=== PATIENT | female | born 1940 | race Caucasian/White ===

== ENCOUNTER 2017-09-24 08:10 | Outpatient (CLI) | payer MEDICARE ==
--- NOTE | 2017-09-24 09:49 | CT ---
CT CHEST WITHOUT CONTRAST: Date: 09/24/17 Multiple axial tomograms obtained through the chest without IV enhancement. HISTORY: Right renal malignancy and bladder cancer. Follow-up pulmonary nodules. COMPARISON: Chest CT of 03/12/17. Prior exam revealed bilateral nodules. FINDINGS: There is a focal nodule in the right upper lobe, apical region, again seen. This nodule has enlarged since the prior study. This nodule is best appreciated on coronal imaging and measures 7.0 mm on olimpia nal views. Previous measurements on coronal images were approximately 4-5 mm. A tiny nodule superior segment right lower lobe faintly seen on the axial images, better seen on the coronal imaging, measuring in the 4.0 mm range is stable. In the lingula, there is an area of scarring with a nodular component, which was described previously . This is less prominent today. The nodular component measures approximately 9.0 mm today, whereas it previously measured approximately 12.0 mm. This is associated with lingular stranding and there is a tiny pleural based nodule at this site measuring approximately 3.0 mm. A tiny, 2-3 mm, nodule slightly more anterior in the lingula is stable. Mediastinum unremarkable. Images through upper abdomen unremarkable. Visualized liver and spleen unremarkable. IMPRESSION: 1. The right apical nodule has enlarged since the prior exam. This is suspicious. Close follow-up is recommended. The size of this nodule is borderline for PET scan evaluation. Suggest follow-up noncon trast CT in 3-4 months to re-evaluate. 2. Other pulmonary nodules appear stable. The 1.0 cm nodule in the left lingula is less pronounced t dejah and is associated with other areas of parenchymal stranding and density that appears consistent with parenchymal scarring. POS: SUYAPA
== END 2017-09-24 08:11 | disposition home or self-care (01) ==
LOC: CT 08:10
PROVIDERS: ATTEND Urology
DX: C65.1 Malignant neoplasm of right renal pelvis (principal); C67.4 Malignant neoplasm of posterior wall of bladder; R91.8 Other nonspecific abnormal finding of lung field
CPT/HCPCS: 71250; 88121

== ENCOUNTER 2017-12-25 09:12 | Outpatient (CLI) | payer MEDICARE ==
[2017-12-25 10:08] LABS: Bilirubin Negative (Negative); Blood, Urine Trace (Negative); Clarity CLEAR (Clear); Glucose, Urine (Dipstick) Negative (Negative); Leukocyte Negative (Negative); Nitrite Negative (Negative); Protein, Urine (Dipstick) Negative (Neg-Trace); Specific Gravity, Urine 1.024 (1.002-1.036); Urobilinogen 0.2 mg/dL (0.2-1.0); pH, Urine 5.5 (5.0-9.0)
[2017-12-25 10:10] LABS: Albumin 4.1 g/dL (3.4-4.8)
[2017-12-25 10:11] LABS: Chloride 106 mmol/L (98-107); Potassium 4.3 mmol/L (3.5-5.1); Sodium 141 mmol/L (136-145)
[2017-12-25 10:12] LABS: Calcium 9.1 mg/dL (7.8-10.44); Glucose 92 mg/dL (83-110)
[2017-12-25 10:13] LABS: Globulin 2.9 g/dL (2.4-3.5)
[2017-12-25 10:14] LABS: Bilirubin, Total 0.6 mg/dL (0.2-1.2); Carbon Dioxide 28 mmol/L (23-31)
[2017-12-25 10:15] LABS: Alkaline Phosphatase 87 U/L (40-150); Bacteria/HPF None Seen HPF (None Seen); Hyaline Casts/LPF 0-3 HYALINE CAST LPF (0-3 Hyaline); Pathc Cast-AUWi Flag 0.43 (0-2.49); RBC/HPF 0-3 HPF (0-3); Squamous Epithelial 0-3 HPF (0-3); WBC/HPF 0-3 HPF (0-3)
[2017-12-25 10:16] LABS: Calc. Creatinine Clearance 0 mL/min (70-130); Estimated GFR-MDRD 50
[2017-12-25 10:17] LABS: AST (SGOT) 18 U/L (5-34); BUN (Urea Nitrogen) 20 mg/dL (9.8-20.1)
[2017-12-25 10:18] LABS: ALT (SGPT) 16 U/L (8-55)
[2017-12-25 10:28] LABS: Anion Gap 11 mmol/L (10-20)
--- NOTE | 2017-12-25 10:50 | CT ---
CT CHEST WITHOUT CONTRAST: HISTORY: Followup pulmonary nodules. Right renal malignancy and bladder cancer. COMPARISON: 09/24/17. FINDINGS: Bilateral tiny pulmonary nodules are again seen and stable. The largest on the right is in the right lung apex measuring 7 mm and in the left is in the lingula measuring 9 mm. The lingular nodule has adjacent scarring. No new pulmonary nodules are identified. Absence of IV contrast reduces the sensitivity of the exam, particularly for evaluation of mediastin al, hilar, vascular structures, and solid organs on the upper abdominal tomograms. There are vascular calcifications without evidence of aneurysmal dilatation of the thoracic aorta. N o pleural or pericardial effusions are seen. Upper abdominal tomograms demonstrate multiple new liver masses. The patient is post cholecystectomy . There are degenerative changes in the spine. IMPRESSION: 1. Stable pulmonary nodules since 09/24/17. Continued followup in 3-4 months is recommended. 2. Interval development of hepatic metastases since 09/24/17. POS: SUYAPA
== END 2017-12-25 09:13 | disposition home or self-care (01) ==
LOC: CT 09:12
PROVIDERS: ATTEND Urology
DX: C78.7 Secondary malignant neoplasm of liver and intrahepatic bile duct (principal); R91.1 Solitary pulmonary nodule; C65.1 Malignant neoplasm of right renal pelvis; C67.4 Malignant neoplasm of posterior wall of bladder
CPT/HCPCS: 36415; 71250; 80053; 81001; 87086

== ENCOUNTER 2017-12-29 11:23 | Outpatient (CLI) | payer MEDICARE ==
[~2017-12-29 11:23] MED LIST: Iopamidol 370 76% 100 ML VIAL ONE
--- NOTE | 2017-12-29 13:49 | CT ---
CT ABDOMEN AND PELVIS WITH AND WITHOUT CONTRAST: Date: 12/29/17 HISTORY: C65.1, neoplasm right renal pelvis. COMPARISON: None. FINDINGS: There are numerous hypodense foci throughout the liver seen on the noncontrasted portion of the exami nation. There is, however, no abnormal hyper or hypoenhancement of the foci on the postcontrast 90 se cond delayed or 4 minute delayed images. This may be sequelae of metastatic disease which has the exact same enhancement pattern as the liver parenchyma, less likely artifact on the noncontrast exam. Prior right nephrectomy. Left renal cyst is present. No dilated loops of large or small bowel. No abnormal nodularity along the right nephrectomy bed. There are, however, abnormal confluent area of adenopathy along the right distal small bowel mesenter y. This best seen on series 3, image 61. Right periaortic lymph nodes have increased in size from the comparison examination. There is an abno rmal round lymph node which measures 12.0 mm in short axis, previously 4.0 mm in short axis. There is a focal area of hyperenhancement along the right posterolateral wall near the right ureterov esical junction measuring 2.0 x 2.0 x 2.1 cm. Moderate facet arthropathy lower lumbar spine. No suspicious lytic or blastic lesions. IMPRESSION: 1. Numerous hypodense foci throughout the liver, only seen on the noncontrasted portion of the exami nation, and not seen on the 90 second or 4 minute delayed sequences. Metastasis from renal cell carci noma would be less likely to cause this imaging appearance. Multifocal nodular fatty infiltration of the liver is a possibility versus metastatic disease from another primary. MRI liver protocol would b e helpful. 2. Abnormal adenopathy along the distal small bowel mesentery, right gonadal vessels, as well as a m ass in the right posterolateral urinary bladder wall measuring up to 2.0 cm. Cystoscopic evaluation r ecommended. CODE T. POS: SUYAPA
== END 2017-12-29 11:24 | disposition home or self-care (01) ==
LOC: CT 11:23
PROVIDERS: ATTEND Urology
DX: C65.1 Malignant neoplasm of right renal pelvis (principal); C67.4 Malignant neoplasm of posterior wall of bladder; R16.0 Hepatomegaly, not elsewhere classified; R93.3 Abnormal findings on diagnostic imaging of other parts of digestive tract
CPT/HCPCS: 74178

== ENCOUNTER 2018-01-04 09:20 | Outpatient (CLI) | payer MEDICARE ==
[2018-01-04] MEDS ORDERED: Gadobenate Dimeglumine 529 MG/1 ML (20ML VIAL) ONE (09:55)
== END 2018-01-04 09:21 | disposition home or self-care (01) ==
LOC: BICMRI 09:20
PROVIDERS: ATTEND Urology
DX: C65.1 Malignant neoplasm of right renal pelvis (principal); C67.4 Malignant neoplasm of posterior wall of bladder; R91.1 Solitary pulmonary nodule; R16.0 Hepatomegaly, not elsewhere classified; K76.9 Liver disease, unspecified; N28.1 Cyst of kidney, acquired; Z90.5 Acquired absence of kidney
CPT/HCPCS: 74183; 82565; A9579

== ENCOUNTER 2018-02-17 13:18 | Outpatient (CLI) | payer MEDICARE ==
[2018-02-17 14:19] LABS: Hemoglobin 13.2 g/dL (12.0-16.0); Mean Corpuscular HGB CONC 32.5 g/dL (32.0-36.0); Mean Corpuscular Hemoglobin 29.4 pg (27.0-31.0); Mean Corpuscular Volume 90.4 fL (78.0-98.0); Mean Platelet Volume 8.6 fL (7.4-10.4); Platelet Count 165 thou/uL (130-400); RBC Distribution Width 12.1 % (11.5-14.5); White Blood Cell (WBC) Count 6.9 thou/uL (4.8-10.8)
[2018-02-17 14:21] LABS: Bilirubin Negative (Negative); Blood, Urine Moderate (Negative); Clarity CLEAR (Clear); Glucose, Urine (Dipstick) Negative (Negative); Leukocyte Negative (Negative); Nitrite Negative (Negative); Protein, Urine (Dipstick) Negative (Neg-Trace); Specific Gravity, Urine 1.007 (1.002-1.036); Urobilinogen 0.2 mg/dL (0.2-1.0); pH, Urine 6.5 (5.0-9.0)
[2018-02-17 14:24] LABS: Bacteria/HPF None Seen HPF (None Seen); Hyaline Casts/LPF 0-3 HYALINE CAST LPF (0-3 Hyaline); Squamous Epithelial None Seen HPF (0-3); WBC/HPF None Seen HPF (0-3)
[2018-02-17 14:25] LABS: INR-International Normal Ratio 1.2; PTT 37.2 SEC (22.9-36.1)
[2018-02-17 14:36] LABS: Anion Gap 15 mmol/L (10-20); BUN (Urea Nitrogen) 21 mg/dL (9.8-20.1); Calc. Creatinine Clearance 0 mL/min (70-130); Calcium 9.2 mg/dL (7.8-10.44); Carbon Dioxide 22 mmol/L (23-31); Chloride 106 mmol/L (98-107); Estimated GFR-MDRD 59; Glucose 90 mg/dL (83-110); Potassium 4.4 mmol/L (3.5-5.1); Sodium 139 mmol/L (136-145)
== END 2018-02-17 13:19 | disposition home or self-care (01) ==
LOC: LABBT 13:18
PROVIDERS: ATTEND Urology
DX: Z01.818 Encounter for other preprocedural examination (principal); C65.1 Malignant neoplasm of right renal pelvis; C67.4 Malignant neoplasm of posterior wall of bladder
CPT/HCPCS: 81001; 85027; 85610; 85730; 86850; 86900; 86901; 87086

== ENCOUNTER 2018-02-17 14:11 | Outpatient (CLI) | payer MEDICARE ==
--- NOTE | 2018-02-17 16:00 | CT ---
CT ABDOMEN AND PELVIS WITH AND WITHOUT CONTRAST: HISTORY: Malignant neoplasm of right renal pelvis. COMPARISON: MRI from 01/04/2018. FINDINGS: The multifocal hepatic masses have increased in size from the comparison examination. An index lesio n in hepatic segment 5 measures approximately 5 cm in size, previously 3.2 cm. This was best seen on series 2, image 26. Another index lesion in the liver, mass, also hepatic segment 5, measures 4.5 c m in size, previously 3 cm. There is extensive left periaortic/right periaortic adenopathy. Large retroperitoneal lymph nodes ar e present. There is also extensive adenopathy of the distal small bowel mesentery. The right jackaroo olateral mass has increased in size, measuring up to 3.5 cm in size, previously approximately 2 cm. There is extension outside the bladder serosa, into the right vaginal cuff. There is also a small am ount of free fluid in the pelvis, concerning for peritoneal involvement. There is a large collection of distal small bowel mesenteric lymph nodes, measuring 3.8 x 3.1 x 15 cm . IMPRESSION: 1. Marked disease progression. 2. Enlarging hepatic metastatic disease, adenopathy, and enlarging bladder mass, which extends outsi de the serosa. CODE T POS: SUYAPA
== END 2018-02-17 14:12 | disposition home or self-care (01) ==
LOC: CT 14:11
PROVIDERS: ATTEND Urology
DX: C65.1 Malignant neoplasm of right renal pelvis (principal); C67.4 Malignant neoplasm of posterior wall of bladder; C77.9 Secondary and unspecified malignant neoplasm of lymph node, unspecified
CPT/HCPCS: 36415; 74178; 80053; 81001; 82248; 83615; 84100; 84443; 84550; 85027; 85610; 85730; 86850; 86900; 86901; 87086; 93005; 93010

== ENCOUNTER 2018-03-12 08:11 | Emergency (ER) | payer MEDICARE ==
[2018-03-12 08:49] LABS: #Eosinphils 0.1 thou/uL (0.0-0.7); #Lymphocytes 1.5 thou/uL (1.20-3.40); #Monocytes 1.6 thou/uL (0.11-0.59); #Neutrophils 15.9 thou/uL (1.40-6.50); %Basophils 0.1 % (0.0-1.0); %Eosinophils 0.3 % (0.0-10.0); %Lymphocytes 7.9 % (21.0-51.0); %Monocytes 8.4 % (0.0-10.0); %Neutrophils 83.3 % (42.0-75.0); Hemoglobin 14.1 g/dL (12.0-16.0); Mean Corpuscular HGB CONC 32.3 g/dL (32.0-36.0); Mean Corpuscular Hemoglobin 29.5 pg (27.0-31.0); Mean Corpuscular Volume 91.5 fL (78.0-98.0); Mean Platelet Volume 11.4 fL (7.4-10.4); Platelet Count 163 thou/uL (130-400); RBC Distribution Width 14.1 % (11.5-14.5); Red Blood Cell (RBC) Count 4.77 mill/uL (4.20-5.40); White Blood Cell (WBC) Count 19.1 thou/uL (4.8-10.8)
[2018-03-12] MEDS ORDERED: Lorazepam 2 MG/ML VIAL ONE (09:07)
--- NOTE | 2018-03-12 09:11 | RAD ---
CHEST 1 VIEW: Date: 03/12/18 HISTORY: Weakness, nausea. COMPARISON: Chest radiograph from 2015. FINDINGS: Layering right pleural effusion. There is prominence of the right hilum. Right infrahilar air space o pacity. No pneumothorax. IMPRESSION: Right infrahilar air space opacity and layering effusion. Given the change from the 12/25/17 T examin ation, this is concerning for infection with parapneumonic effusion. Follow-up and treatment recommen ded. POS: SUYAPA
[2018-03-12 09:12] LABS: Bilirubin Moderate (Negative); Blood, Urine Large (Negative); Glucose, Urine (Dipstick) Negative (Negative); Leukocyte Negative (Negative); Nitrite Positive (Negative); Protein, Urine (Dipstick) 30 mg/dL (Neg-Trace); pH, Urine 5.5 (5.0-9.0)
[2018-03-12 09:15] LABS: Clarity Cloudy (Clear); Specific Gravity, Urine 1.029 (1.002-1.036)
[2018-03-12 09:24] LABS: RBC/HPF GREATER THAN 50-TNTC HPF (0-3)
[2018-03-12 09:25] LABS: Bacteria/HPF 3+ HPF (None Seen); Renal Epithelial 0-3 HPF (0-3); Transitional Epithelial 0-3 HPF (0-3)
[2018-03-12 09:26] LABS: ALT (SGPT) 111 U/L (8-55); AST (SGOT) 150 U/L (5-34); Albumin 3.4 g/dL (3.4-4.8); Alkaline Phosphatase 452 U/L (40-150); Anion Gap 28 mmol/L (10-20); BUN (Urea Nitrogen) 56 mg/dL (9.8-20.1); Bilirubin, Total 3.3 mg/dL (0.2-1.2); Calc. Creatinine Clearance 0 mL/min (70-130); Calcium 9.1 mg/dL (7.8-10.44); Chloride 108 mmol/L (98-107); Estimated GFR-MDRD 29; Globulin 3.5 g/dL (2.4-3.5); Glucose 123 mg/dL (83-110); Potassium 4.8 mmol/L (3.5-5.1); Protein, Total 6.9 g/dL (6.0-8.3); Sodium 140 mmol/L (136-145)
[2018-03-12] MEDS ORDERED: EPINEPHrine 1 MG/10 ML Abboject SYRINGE ONE ×2 (09:38→19:53)
[2018-03-12 09:49] LABS: Carbon Dioxide 9 mmol/L (23-31)
[2018-03-12] MEDS ORDERED: Norepinephrine 8 MG/0.9% NS 250 ML ONE (09:57)
[2018-03-12] MEDS ORDERED: Levofloxacin 500 mg/D5W 100 ml Premix Bag ONE (09:57)
[2018-03-12] MEDS ORDERED: Sodium Bicarb 50 MEQ/50 ML Abboject 8.4% SYRINGE ONE (10:39)
[2018-03-12 10:46] LABS: Actual Bicarbonate (HCO3a) 5.2 mEq/L (22-28); Analyzer IN Cardio ER; Base Excess (BEa) -26.8 mEq/L (-2.0 to +3.0); CO2 Tension 27.8 mmHg (35.0-45.0); Calcium, Ionized 1.1 mmol/L (1.12-1.30); Carboxyhemoglobin (COHb) 0.3 gm% (0.0-3.0); Hemoglobin (Hb) 12.4 g/dL (12.0-16.0); O2 Tension (PaO2) 119.4 mmHg (> 70.0); Potassium - ABG Lab 5.5 mmol/L (3.70-5.30); Puncture Site L.B.; pH, Arterial 6.89 (7.35-7.45)
--- NOTE | 2018-03-12 11:14 | RAD ---
SUPINE PORTABLE CHEST: HISTORY: A 77-year-old female with a history of respiratory insufficiency, intubation. FINDINGS: NG tube and endotracheal tubes are in satisfactory location. Extensive bilateral interstitial change s with some right pleural effusion and costophrenic angle blunting. These bilateral interstitial and alveolar parenchymal changes appear somewhat more marked than on the prior 03/12/18 study. IMPRESSION: Worsening extensive bilateral interstitial and alveolar parenchymal changes and right pleural effusio n. Nasogastric tube and endotracheal tubes in satisfactory location. Continue short-term followup. POS: SUYAPA
[2018-03-12] MEDS ORDERED: Cefepime 2 GM in Sodium Chloride 0.9% 100 ML IVPB SCH (11:15)
== END 2018-03-12 13:46 ==
LOC: ERS 08:11
DX: A41.9 Sepsis, unspecified organism (principal); R65.20 Severe sepsis without septic shock; J96.90 Respiratory failure, unspecified, unspecified whether with hypoxia or hypercapnia; J18.9 Pneumonia, unspecified organism; I10 Essential (primary) hypertension; Z79.899 Other long term (current) drug therapy
CPT/HCPCS: 31500; 36416; 36556; 51702; 71045; 80053; 81003; 81015; 82805; 83605; 85025; 87040; 87086; 92950; 93005; 94002; 94660; 94760; 96365; 96366; 96368; 96375; 99292; A4353; J0171; J0692; J1956; J2060; J7050